=== PATIENT | male | born 1945 | race Caucasian/White ===

== ENCOUNTER 2022-07-09 13:44 | Emergency (ER) | payer MEDICARE, BC, SELFPAY ==
[2022-07-09 14:22] VITALS: BP 160/86; PULSE 96; RESP 18; TEMP 36.4; O2SAT 96; BMI 23.1
--- NOTE | 2022-07-09 14:27 | CRLHL7_ITS ---
For Patients: As a result of the Century Cures Act, medical imaging exams and procedure reports are released immediately into your electronic medical record. You may view this report before your referring provider. If you have questions, please contact your health care provider. INDICATION: Leg pain and swelling. TECHNIQUE: Ultrasound venous duplex lower left extremity. Compression venous exam was performed using white-scale, color Doppler, and spectral Doppler analysis. COMPARISON: None. FINDINGS: Deep veins: Sonographic imaging of the left common femoral, deep femoral, superficial femoral, popliteal, posterior tibial and the contralateral right common femoral veins shows thrombus in the left posterior tibial branch in the proximal to mid calf. Additionally, thrombus is visualized in the left gastrocnemius vein. The other vessels are fully compressible with normal color Doppler blood flow. Superficial veins: Greater saphenous vein is fully compressible. Soft tissues: No popliteal cyst. IMPRESSION: DVT in the left gastrocnemius and posterior tibial veins. Findings reported to Dr. Arguelles on 07/09/2025 at 4:35 p.m. Dictated by Khoi Ferraro MD @ 07/09/2022 4:39:21 PM (Electronically Signed)
--- NOTE | 2022-07-09 16:08 | ED.GENADULT ---
HPI - General Adult General Chief complaint: Extremity Pain/Injury, Lower Stated complaint: Blood Clot Left Leg Time Seen by Provider: 07/09/22 15:23 History of Present Illness HPI narrative: This 76-year-old male comes in reporting an episode of pain in his left lower extremity last night. He states that he was laying down and when he got up he had severe pain in his left lower leg. This pain has resolved since then. He is concerned about a blood clot in his leg because he did have evidence of thrombosis in that same like about 7 months ago. He took an anticoagulant for a month or 2 and has been doing well since then. He does not report any injury event. He does not have any chest pain or shortness of breath. There is no report of increased swelling in his left leg. Related Data Home Medications Medication Instructions Recorded Confirmed lisinopril 20 mg tablet mg 07/09/22 Previous Rx's Medication Instructions Recorded apixaban 5 mg (74 tabs) tablets in See Rx Instructions PO .COMPLEX 07/09/22 a dose pack (Cobrain DVT-PE Treat #74 ea 30D Start) Allergies Allergy/AdvReac Type Severity Reaction Status Date / Time No Known Drug Allergies Allergy Verified 07/09/22 14:20 Review of Systems Status of ROS: Reports: 10 or more systems reviewed and unremarkable except as noted in History and below Narrative: Constitutional: No fevers, no weight gain or loss. Eyes: No discharge. No vision changes. HENT: No congestion, no sore throat, no ear pain. Cardiovascular: No chest pain, no palpitations. Respiratory: No shortness of breath, no wheezes, no cough. Gastrointestinal: No abdominal pain, no vomiting, no diarrhea. Genitourinary: No dysuria, no hematuria. Musculoskeletal: Normal range of motion. Episode of pain in his left lower extremity last night. Skin: No rashes, no pruritis. Neurological: No dizziness, weakness, sensory change, speech change. Endo/Heme/Allergies: No bruising or bleeding. No polydipsia. Pysch: no suicidality, no anxiety, no insomnia. All other systems reviewed and are negative. PFS PFS Social History Smoking Status: Never smoker Do you use any of these nicotine containing products: None How often do you have a drink containing alcohol: never How often do you have six or more drinks on one occasion: Never AUDIT-C Alcohol total score: 0 Non-prescribed substance use: denies use service: No Exam Narrative: Exam Narrative: Constitutional: Well-developed, well-nourished, no acute distress. HEENT: Normocephalic, atraumatic. Neck: Normal range of motion. Nontender. Supple. Heart: Regular. No murmurs. Normal rate. Intact distal pulses. Lungs: Clear to auscultation. No chest discomfort. No wheezes, rhonchi, or rales. Abdomen: Normal bowel sounds. Nontender. No rebound tenderness. Genitalia: Deferred. Back: No midline tenderness. Normal range of motion. Extremities: Normal range of motion. No injury. Straight leg raise is negative bilaterally. No sign of swelling or pain when palpating his left lower extremity. Skin: Intact. No rash. Warm. No erythema or pallor. Neurologic: No altered sensation. No weakness. Alert and oriented. Psychiatric: No suicidality. No anxiety or depression. No insomnia. Nursing notes and vitals signs are reviewed. Const: Vital Signs, click to edit/add: Vital Signs - 24 hr 07/09/22 14:22 Temperature 97.6 F Pulse Rate [Right Pulse Oximeter] 96 Respiratory Rate 18 Blood Pressure [Ri ght Upper Arm] 160/86 H Pulse Oximetry 96 Oxygen Delivery Me thod Room Air Course Vital Signs Vital signs: Initial Vital Signs Temperature 97.6 F 07/09/22 14:22 Temperature Source Temporal Artery Scan 07/09/22 14:22 Pulse Rate 96 07/09/22 14:22 Respiratory Rate 18 07/09/22 14:22 Blood Pressure 160/86 H 07/09/22 14:22 Blood Pressure Mean 110 07/09/22 14:22 Blood Pressure Position Sitting 07/09/22 14:22 Pulse Oximetry 96 07/09/22 14:22 Oxygen Delivery Method 07/09/22 14:22 Vital Signs Temperature 97.6 F 07/09/22 14:22 Pulse Rate 96 07/09/22 14:22 Respiratory Rate 18 07/09/22 14:22 Blood Pressure 160/86 H 07/09/22 14:22 Pulse Oximetry 96 07/09/22 14:22 Oxygen Delivery Method 07/09/22 14:22 Temperature 97.6 F 07/09/22 14:22 Pulse Rate 96 07/09/22 14:22 Respiratory Rate 18 07/09/22 14:22 Blood Pressure 160/86 H 07/09/22 14:22 Pulse Oximetry 96 07/09/22 14:22 Oxygen Delivery Method 07/09/22 14:22 Medical Decision Making MDM Narrative Medical decision making narrative: This 76-year-old male comes in with pain in his left lower extremity. He has a prior history of DVT that occurred about 7 months ago. He states that he took an anticoagulant for about a month or so. He comes in today because of onset of pain that occurred last night. He states that it feels similar to his previous DVT symptoms. He does not report any chest pain or shortness of breath. Ultrasound of the left lower extremity does in fact show evidence of superficial and deep thrombus in the gastrocnemius and posterior tibial veins respectively. The patient received an oral dose of apixaban 10 mg here. He has normal vital signs and is not displaying symptoms of significant pulmonary embolism. His PERC score is positive only in that he did have a previous DVT. I did discuss with him CT imaging of his chest and indicated the need for anticoagulant therapy regardless of the findings especially since his vital signs are in normal range. He has normal oximetry, respiratory rate, and pulse. He does not have any shortness of breath or chest pain. A prescription for Eliquis starter pack is provided. I advised him to follow-up with his primary physician as he will need to be on long-term anticoagulant therapy. Imaging Data Venous US: Radiologist's impression: FINDINGS: Deep veins: Sonographic imaging of the left common femoral, deep femoral, superficial femoral, popliteal, posterior tibial and the contralateral right common femoral veins shows thrombus in the left posterior tibial branch in the proximal to mid calf. Additionally, thrombus is visualized in the left gastrocnemius vein. The other vessels are fully compressible with normal color Doppler blood flow. Superficial veins: Greater saphenous vein is fully compressible. Soft tissues: No popliteal cyst. IMPRESSION: DVT in the left gastrocnemius and posterior tibial veins. Discharge Plan Discharge Clinical Impression: Deep venous thrombosis Patient Disposition: Home, Self-Care Condition: Stable Additional Instructions: Take medication as prescribed. Follow up with primary physician for ongoing management. Return if worsening. Prescriptions: New Eliquis DVT-PE Treat 30D Start 5 mg (74 tabs) tablets,dose pack See Rx Instructions PO .COMPLEX Qty: 74 0RF Rx Instructions: orally per package directions No Action lisinopril 20 mg tablet Follow Up/Referrals: Provider,Not a Local [Primary Care Provider] - Stand Alone Forms: [employer] Info Instructions
[2022-07-09] MEDS: APIXABAN 5 MG TABLET 10 MG PO (17:08)
[2022-07-09 17:17] VITALS: TEMP 37.1; O2SAT 98
== END 2022-07-09 17:19 | disposition home or self-care (01) ==
PROVIDERS: Emergency Provider Emergency Medicine Emergency Medical Services
DX: I82.402 Acute embolism and thrombosis of unspecified deep veins of left lower extremity (principal)
CPT/HCPCS: 93971; 99284; 99285; A9270